=== PATIENT | male | born 1960 | race Caucasian/White ===

== ENCOUNTER 2017-01-29 07:29 | Day surgery (SDC) | payer OTHER ==
[2017-01-28 11:46] VITALS: BMI 27.8
[2017-01-29] MEDS ORDERED: Oxymetazoline HCl 0.05% ( 15 ML ) ONE ×2 (08:43→09:46)
[2017-01-29] MEDS ORDERED: Bupivacaine HCl 0.5%/Epinephrine 1:200,000/PF 30 ml Vial ONE (08:58)
[2017-01-29] MEDS ORDERED: Fentanyl 250 MCG/5 ML VIAL ONE (09:54)
[2017-01-29] MEDS ORDERED: Dexamethasone 20 MG/5 ML VIAL ONE (10:04)
[2017-01-29] MEDS ORDERED: Propofol 200 MG/20 ML VIAL ONE (10:04)
[2017-01-29] MEDS ORDERED: Ondansetron HCl/PF 4 MG/2 ML Vial ONE (10:04)
[2017-01-29] MEDS ORDERED: Lidocaine 2% PF 10 ML AMP (For Epidural Use) ONE (10:04)
[2017-01-29] MEDS ORDERED: Glycopyrrolate 0.2 MG/ML 5 ML SYRINGE ONE (10:04)
--- NOTE | 2017-01-30 08:51 | OP ---
PREOPERATIVE DIAGNOSES: 1. Chronic rhinosinusitis. 2. Bilateral severe nasal polyposis. 3. Allergic fungal sinusitis. POSTOPERATIVE DIAGNOSES: 1. Chronic rhinosinusitis. 2. Bilateral severe nasal polyposis. 3. Allergic fungal sinusitis. PROCEDURES: 1. Bilateral endoscopic sinus surgery, total ethmoidectomies. 2. Bilateral endoscopic sinus surgery, maxillary antrostomies with removal of tissue. 3. Bilateral endoscopic sinus surgery, frontal sinusotomies with removal of tissue. 4. Bilateral endoscopic sinus surgery, sphenoidotomies with removal of tissue. 5. Image-guided cranial base landmark navigational surgery. SURGEON: Luigi Marlow M.D. ESTIMATED BLOOD LOSS: 50 mL. COMPLICATIONS: None. ANESTHESIA: GETA. PROCEDURE: The patient taken to the operating room and placed on the table. General endotracheal a nesthesia was obtained by the Anesthesia staff. Tube was secured in the left lower lip and the rajesh ent was then placed in the beach chair position and prepped and draped for standard nasal procedure. Following this, the image guidance landmark system was set up, calibrated and was noted to be with in 1 mm of accuracy. Following this, the 0 degree scope was advanced into the nasal cavity. Nasal polyps were encountered throughout the middle meatus and the sphenoethmoidal recess area. These zabrina yps were injected with 1% lidocaine with 1:100,000 epinephrine as well as injections in the inferior turbinates, middle turbinates and lateral nasal wall. Following this, the guided microdebrider was then used to remove obstructing polyps from the middle meatus area. The maxillary sinus ostia from previous surgery was identified. There was noted to be large polypoid tissues protruding from the right side greater than left side. These were removed using a curved microdebrider. Polypoid tissu e from within the maxillary sinuses was removed as well. Following this, the remnant of the ethmoid al bulla was identified and was punctured into the posterior ethmoidal cells using the Guidant syste m. Working from posterior to anterior, the ethmoidal cells were opened same as much normal mucosa a s possible by removing the large polypoid tissue. There was scant amount of fungal debris present o n the right ethmoidal sinus. The sphenoid sinuses were approached from the previous ethmoidectomies using image-guided system. The sphenoidotomies were created were widened medially and inferiorly a nd polyps were removed from the sphenoid ostia and the sphenoid sinuses bilaterally. Following this , a 45 degree scope and upbiting image-guided microdebrider were used to remove polyps and scar tiss ue from the frontal sinus area and polyps removed from the frontal sinuses bilaterally. Following t his, the nasal cavity was irrigated. MeroPacks were placed in the middle meatus and patient tolerat ed the procedure well.
--- NOTE | 2017-01-31 15:58 | EKG ---
Test Reason : PREOP Blood Pressure : / mmHG Vent. Rate : 068 BPM Atrial Rate : 068 BPM P-R Int : 146 ms QRS Dur : 084 ms QT Int : 386 ms P-R-T Axes : 058 027 036 degrees QTc Int : 410 ms Normal sinus rhythm Normal ECG When compared with ECG of 09-DEC-2012 08:27, No significant change was found Confirmed by DR. Mouna COLMENARES ([id number]) on 01/31/2017 3:58:06 PM Referred By: LEX Confirmed By:DR. Mouna COLMENARES
== END 2017-01-29 13:30 | disposition home or self-care (01) ==
LOC: SDC 07:29
PROVIDERS: ATTEND Otolaryngology Plastic Surgery within the Head & Neck
PROC: 09CW8ZZ Extirpation of Matter from Right Sphenoid Sinus, Via Natural or Artificial Opening Endoscopic (ICD-10-PCS; principal; 2017-01-29)
PROC: 09TU8ZZ Resection of Right Ethmoid Sinus, Via Natural or Artificial Opening Endoscopic (ICD-10-PCS; principal; 2017-01-29)
PROC: 09TV8ZZ Resection of Left Ethmoid Sinus, Via Natural or Artificial Opening Endoscopic (ICD-10-PCS; principal; 2017-01-29)
PROC: 099R8ZZ Drainage of Left Maxillary Sinus, Via Natural or Artificial Opening Endoscopic (ICD-10-PCS; principal; 2017-01-29)
PROC: 09CX8ZZ Extirpation of Matter from Left Sphenoid Sinus, Via Natural or Artificial Opening Endoscopic (ICD-10-PCS; principal; 2017-01-29)
PROC: 099Q8ZZ Drainage of Right Maxillary Sinus, Via Natural or Artificial Opening Endoscopic (ICD-10-PCS; principal; 2017-01-29)
PROC: 09BT8ZZ Excision of Left Frontal Sinus, Via Natural or Artificial Opening Endoscopic (ICD-10-PCS; principal; 2017-01-29)
PROC: 09BS8ZZ Excision of Right Frontal Sinus, Via Natural or Artificial Opening Endoscopic (ICD-10-PCS; principal; 2017-01-29)
PROC: 09BL0ZX Excision of Nasal Turbinate, Open Approach, Diagnostic (ICD-10-PCS; principal; 2017-01-29)
DX: J32.9 Chronic sinusitis, unspecified (principal); J33.9 Nasal polyp, unspecified; J34.3 Hypertrophy of nasal turbinates; J30.89 Other allergic rhinitis; I10 Essential (primary) hypertension; N52.9 Male erectile dysfunction, unspecified; Z98.890 Other specified postprocedural states; Z87.19 Personal history of other diseases of the digestive system
CPT/HCPCS: 87070; 87077; 87102; 87205; 87206; 88304; 93005; 93010; J0670; J1100; J2001; J2405; J2704; J3010

== ENCOUNTER 2019-01-14 11:51 | Outpatient (CLI) | payer OTHER ==
[2019-01-14 12:27] LABS: #Basophils 0.1 thou/uL (0.0-0.2); #Eosinphils 0.1 thou/uL (0.0-0.7); #Monocytes 0.7 thou/uL (0.11-0.59); #Neutrophils 6.1 thou/uL (1.40-6.50); %Basophils 0.8 % (0.0-1.0); %Lymphocytes 22.1 % (21.0-51.0); %Monocytes 7.4 % (0.0-10.0); %Neutrophils 68.7 % (42.0-75.0); Hemoglobin 13.2 g/dL (14.0-18.0); Mean Corpuscular HGB CONC 33.9 g/dL (32.0-36.0); Mean Corpuscular Hemoglobin 32.7 pg (27.0-31.0); Mean Corpuscular Volume 96.5 fL (78.0-98.0); Mean Platelet Volume 6.3 fL (7.4-10.4); Platelet Count 289 thou/uL (130-400); Red Blood Cell (RBC) Count 4.04 mill/uL (4.70-6.10); White Blood Cell (WBC) Count 8.8 thou/uL (4.8-10.8)
[2019-01-14 12:58] LABS: ALT (SGPT) 25 U/L (8-55); AST (SGOT) 21 U/L (5-34); Albumin 4.3 g/dL (3.5-5.0); Alkaline Phosphatase 74 U/L (40-110); Anion Gap 10 mmol/L (10-20); BUN (Urea Nitrogen) 8 mg/dL (8.4-25.7); Bilirubin, Total 0.6 mg/dL (0.2-1.2); Calc. Creatinine Clearance 0 mL/min (70-130); Calcium 8.8 mg/dL (7.8-10.44); Carbon Dioxide 28 mmol/L (22-29); Chloride 88 mmol/L (98-107); Estimated GFR-MDRD Greater than 90; Globulin 2.1 g/dL (2.4-3.5); Glucose 103 mg/dL (70-105); Potassium 3.7 mmol/L (3.5-5.1); Protein, Total 6.4 g/dL (6.0-8.3); Sodium 122 mmol/L (136-145)
== END 2019-01-14 11:52 | disposition home or self-care (01) ==
LOC: LABBT 11:51
PROVIDERS: ATTEND Surgery
DX: Z01.818 Encounter for other preprocedural examination (principal); D17.1 Benign lipomatous neoplasm of skin and subcutaneous tissue of trunk
CPT/HCPCS: 80053; 85025; 93005; 93010

== ENCOUNTER 2019-01-20 05:55 | Day surgery (SDC) | payer OTHER ==
[2019-01-14 11:20] VITALS: BMI 25.1
[2019-01-20] MEDS ORDERED: Fentanyl 100 MCG/2 ML VIAL ONE (06:38)
[2019-01-20] MEDS ORDERED: Lidocaine 2% PF 5 ML VIAL ONE (06:40)
[2019-01-20] MEDS ORDERED: Bupivacaine HCl 0.5%/Epinephrine 1:200,000/PF 30 ml Vial ONE (06:40)
== END 2019-01-20 07:30 | disposition home or self-care (01) ==
LOC: SDC 05:55
PROVIDERS: ATTEND Surgery
DX: D17.1 Benign lipomatous neoplasm of skin and subcutaneous tissue of trunk (principal); E87.1 Hypo-osmolality and hyponatremia; Z53.09 Procedure and treatment not carried out because of other contraindication; Z79.52 Long term (current) use of systemic steroids; Z79.82 Long term (current) use of aspirin; Z79.899 Other long term (current) drug therapy
CPT/HCPCS: J0670; J0690; J2001; J3010

== ENCOUNTER 2019-03-06 11:38 | Emergency (ER) | payer OTHER ==
--- NOTE | 2019-03-06 13:25 | ULT ---
EXAM: Left lower extremity venous ultrasound HISTORY: Left lower extremity pain and edema COMPARISON: None TECHNIQUE: Multiplanar grayscale and color Doppler images were obtained in a left lower extremity mateo ous ultrasound. Spectral analysis of the Doppler waveforms were performed. FINDINGS: The common femoral vein, profunda femoral vein, superficial femoral vein, and popliteal vei n are normal in appearance without visible thrombus. These vessels demonstrate normal compression, flow, and augmentation. The posterior tibial vein and greater saphenous vein are patent without evidence of thrombus. IMPRESSION: No evidence of DVT.
== END 2019-03-06 13:56 | disposition home or self-care (01) ==
LOC: ERS 11:38
DX: L03.116 Cellulitis of left lower limb (principal); I10 Essential (primary) hypertension; N40.0 Benign prostatic hyperplasia without lower urinary tract symptoms; Z87.891 Personal history of nicotine dependence

== ENCOUNTER 2022-12-09 11:28 | Outpatient (CLI) | payer BC | END 2022-12-09 11:29 | disposition home or self-care (01) | LOC: SCSRAD 11:28 | PROVIDERS: ATTEND Physician Assistant | DX: M54.50 Low back pain, unspecified (principal); M47.816 Spondylosis without myelopathy or radiculopathy, lumbar region; M43.16 Spondylolisthesis, lumbar region | CPT/HCPCS: 72100 ==

== ENCOUNTER 2022-12-13 15:01 | Outpatient (CLI) | payer BC | END 2022-12-13 15:02 | disposition home or self-care (01) | LOC: SCSMRI 15:01 | PROVIDERS: ATTEND Family Medicine Sports Medicine | DX: M43.16 Spondylolisthesis, lumbar region (principal); M48.061 Spinal stenosis, lumbar region without neurogenic claudication; M48.07 Spinal stenosis, lumbosacral region | CPT/HCPCS: 72148 ==

== ENCOUNTER 2023-05-06 08:30 | Inpatient (IN) | payer MEDICARE ==
[2023-05-05 10:48] VITALS: BMI 27.8
[2023-08-05 07:52] LABS: PTT 28.7 sec (22.9-36.1)
[2023-08-05 09:06] LABS: #Basophils 0.11 10x3/uL (0.0-0.2); %Basophils 1.6 % (0.0-1.0); %Eosinophils 14.3 % (0.0-10.0); %Lymphocytes 25.8 % (21.0-51.0); %Monocytes 6.9 % (0.0-10.0); %Neutrophils 51.3 % (42.0-75.0); Hematocrit 42.8 % (42.0-52.0); Mean Corpuscular Volume 91.3 fL (78.0-98.0); Mean Platelet Volume 9.9 fL (7.4-10.4); Platelet Count 267 10x3/uL (130-400); RBC Distribution Width 12.7 % (11.5-14.5); Red Blood Cell (RBC) Count 4.69 mill/uL (4.70-6.10)
[2023-08-06 19:10] VITALS: BP 101/65; TEMP 98
== END 2023-08-06 19:10 | disposition home or self-care (01) | DRG 455 ==
LOC: EDSTATUS 09:56 → SURG A 08-05 06:04 → MSONC 08-05 13:43
PROVIDERS: ADMIT Neurological Surgery; ATTEND Neurological Surgery
PROC: 0SG00AJ Fusion of Lumbar Vertebral Joint with Interbody Fusion Device, Posterior Approach, Anterior Column, Open Approach (ICD-10-PCS; principal; 2023-08-05)
PROC: 0SG0071 Fusion of Lumbar Vertebral Joint with Autologous Tissue Substitute, Posterior Approach, Posterior Column, Open Approach (ICD-10-PCS; 2023-08-05)
PROC: 3E033XZ Introduction of Vasopressor into Peripheral Vein, Percutaneous Approach (ICD-10-PCS; 2023-08-05)
PROC: 01NB0ZZ Release Lumbar Nerve, Open Approach (ICD-10-PCS; 2023-08-05)
PROC: 0SB20ZZ Excision of Lumbar Vertebral Disc, Open Approach (ICD-10-PCS; 2023-08-05)
DX: M43.16 Spondylolisthesis, lumbar region (principal); M54.17 Radiculopathy, lumbosacral region; M21.379 Foot drop, unspecified foot
CPT/HCPCS: 85025; 85610; 85730; 93005; 93010; A4314; C1713; C1889; J0171; J0665; J1100; J1170; J2250; J2371; J2704; J3370; J3490

== ENCOUNTER 2023-10-23 10:34 | Outpatient (CLI) | payer MEDICARE ==
[2023-10-23 12:01] LABS: #Basophils 0.05 10x3/uL (0.0-0.2); #Eosinphils 0.32 10x3/uL (0.0-0.5); #Monocytes 0.43 10x3/uL (0.0-1.1); #Neutrophils 4.27 10x3/uL (1.5-8.4); %Basophils 0.8 % (0.0-2.0); %Eosinophils 5.1 % (0.0-6.0); %Lymphocytes 19.6 % (18.0-47.0); %Monocytes 6.8 % (0.0-10.0); %Neutrophils 67.5 % (40.0-75.0); Hematocrit 42.8 % (38.8-50.0); Hemoglobin 14.9 g/dL (13.5-17.5); Mean Corpuscular HGB CONC 34.8 g/dL (32.0-36.0); Mean Corpuscular Hemoglobin 31.2 pg (27.0-33.0); Mean Corpuscular Volume 89.7 fL (81.2-95.1); Mean Platelet Volume 9.9 fL (7.4-10.4); Platelet Count 245 10x3/uL (150-450); RBC Distribution Width 12.8 % (11.5-14.5); Red Blood Cell (RBC) Count 4.77 10x6/uL (4.32-5.72); White Blood Cell (WBC) Count 6.3 10x3/uL (3.5-10.5)
[2023-10-23 12:14] LABS: ALT (SGPT) 16 U/L (8-55); AST (SGOT) 22 U/L (5-34); Albumin 4.5 g/dL (3.4-4.8); Alkaline Phosphatase 104 U/L (40-110); Anion Gap 14 mmol/L (10-20); BUN (Urea Nitrogen) 6 mg/dL (8.4-25.7); Bilirubin, Total 0.5 mg/dL (0.2-1.2); Calc. Creatinine Clearance 0 mL/min (70-130); Calcium 9.4 mg/dL (7.8-10.44); Carbon Dioxide 26 mmol/L (23-31); Chloride 94 mmol/L (98-107); Estimated GFR 99; Globulin 2.7 g/dL (2.4-3.5); Glucose 102 mg/dL (80-115); Potassium 4.1 mmol/L (3.5-5.1); Protein, Total 7.2 g/dL (5.8-8.1); Sodium 130 mmol/L (136-145)
== END 2023-10-23 10:35 | disposition home or self-care (01) ==
LOC: LABBT 10:34
PROVIDERS: ATTEND Surgery
DX: Z01.818 Encounter for other preprocedural examination (principal); D17.1 Benign lipomatous neoplasm of skin and subcutaneous tissue of trunk
CPT/HCPCS: 80053; 85025; 93005; 93010

== ENCOUNTER 2024-01-29 12:45 | Outpatient (CLI) | payer MEDICARE | END 2024-01-29 12:46 | disposition home or self-care (01) | LOC: ULT 12:45 | PROVIDERS: ATTEND Urology | DX: R33.9 Retention of urine, unspecified (principal); N32.89 Other specified disorders of bladder; R39.198 Other difficulties with micturition | CPT/HCPCS: 76770 ==